=== PATIENT | male | born 1955 | race Caucasian/White ===

== ENCOUNTER → 2017-10-20 | Outpatient (CLI) | payer BC ==
--- NOTE | 2017-10-20 17:25 | CONS ---
CONSULTATION REASON FOR EVALUATION: Sleep apnea. This is a 62-year-old watson who is coming in for sleep apnea evaluation. His symptoms started approximately July of 2017 when he quit smoking. After he quit smoking, he has various symptoms of nicotine withdrawal including sleep disturbance, constipation, sweating and he was waking up from sleep in the middle of the night. At the same time, the noted that the patient is snoring on and off and he is having apneas and he would wake up with a body jerk. No marla seizures have been reported. The patient denies having any major hypersomnia or sleepiness. Danbury score of 12. He goes to bed around midnight and wakes up 6:00 am in the morning. He is a watson and is able to perform activities of day-to-day life without having to fall sleep nor being interrupted because of excessive sleepiness. No problems with memory and concentration. He is feeling a bit tired. PAST MEDICAL HISTORY: Negative. SURGICAL HISTORY: Negative. DRUG ALLERGIES: Not known. MEDICATIONS ARE: Baby aspirin, and Zyrtec. SOCIAL HISTORY: He is a ex-smoker. He has 40 pack year smoking history. He is a watson. No history of alcohol. No history of IV drugs. FAMILY HISTORY: Negative for sleep apnea. REVIEW OF SYSTEMS: 12-point review of system was done. Most of the positive findings are mentioned above in history of present illness. No history of any nocturia. No grinding of the teeth. No sleepwalking. No dry mouth. No palpitations. No heartburn. No restlessness in the lower extremities. No sweating for now. No sleep talking. PHYSICAL EXAMINATION: BP is 134/82, pulse 72, respirations 16, and temperature 98, saturation 95% on room air. Danbury score is at 12. Weight is 213, BMI 30.5, height is 5 feet 10 inches. Neck size 16 and a quarter of an inch. GENERAL APPEARANCE: Appears calm, comfortable. Head is atraumatic, normocephalic. NECK: Supple. No JVD. No goiter or neck masses. Mallampati Class 1. LUNGS: Clear to auscultation. HEART: Sounds are regular. Normal S1, S2. No S3, S4. No murmurs. ABDOMEN: Soft, nontender. No organomegaly. EXTREMITIES: No edema. No cyanosis or clubbing. IMPRESSION: 1. Questionable nocturnal apneas rule out underlying obstructive sleep apnea. 2. Nicotine withdrawal symptoms. The patient quit smoking approximately 2-3 months ago. Symptoms overall are improving. 3. Chronic environmental allergies. PLAN: The patient is doing better as he recovers from symptoms of nicotine withdrawal. He is not smoking for now. He is not using any nicotine replacements. At the same time there was concern of obstructive sleep apnea. Based on description is was given by the . My overall suspicion is low taking into account the patient's symptoms and anatomic features. We will do a home sleep study to screen the patient and treat accordingly. MMODL / IJN: [id number] /
== END | disposition home or self-care (01) ==
LOC: SLEEP 15:49
PROVIDERS: ATTEND Internal Medicine Critical Care Medicine
DX: R06.83 Snoring (principal); F17.293 Nicotine dependence, other tobacco product, with withdrawal; Z79.899 Other long term (current) drug therapy
CPT/HCPCS: 99211

== ENCOUNTER → 2018-03-02 | Outpatient (CLI) | payer BC ==
--- NOTE | 2018-03-02 15:35 | PN ---
PROGRESS NOTE DATE OF SERVICE: 03/02/2018 A 62-year-old gentleman who has been followed in the [facility] to discuss results of home sleep apnea test and following plan. Patient is a patient of Dr. Penny. I discussed results of sleep study with patient in detail. Sleep study showed total apnea-hypopnea index 26.6 with 70 episodes of documented central apneas with oxygen desaturation to 84%. The patient and his referred at the moment when the sleep study was done was the time when patient stopped smoking and at that time, his sleep quality was very bad. He has multiple awakenings from sleep. Significant amount of jerking movements at night and his sleep significantly improved comparing to that time now. According to his , his snoring decreased. He does not snore now and sleeps quite well again. Winn Sleepiness Scale today is 7. MEDICATIONS: Baby aspirin. PHYSICAL EXAM: Patient in no distress. BP 115/77, HR 76, RR 16. Weight 221.4 pounds, height 70 inches, body mass index 31.7. OROPHARYNX: Mallampati 1 practically normal position of soft palate. Neck Supple, no JVD. Thyroid is not palpable. LUNGS Clear to percussion and to auscultation. Good air exchange. No wheezing or rhonchi. HEART S1, S2 regular. No murmurs, gallops, or rubs. ABDOMEN Soft and nontender. Bowel sounds are present. No organomegaly appreciated. EXTREMITIES No clubbing or cyanosis. [employer] Awake, alert, and oriented X3. Cranial nerves 2 to 7 intact. There is no fasciculation or atrophy. noted. No focal deficits observed. We discussed possibility to use CPAP treatment for treatment of obstructive and central sleep apnea-hypopnea syndrome, but at the present time, patient does not feel comfortable to start CPAP therapy and preferred to avoid that. IMPRESSION: 1. Obstructive sleep apnea and central sleep apnea-hypopnea syndrome by results of home sleep study in moderate range. 2. Seasonal allergy. 3. Mild obesity. 4. History of nicotine withdrawal syndrome in the past. Presently, no problems. PLAN: 1. Patient will follow with Dr. Penny. 2. I would suggest to repeat home sleep apnea test now to recheck the patient's breathing at the present time. 3. Sleep hygiene with regular time in bed for 7 hours. 4. No driving if feeling sleepiness. 5. Watching and losing weight. 6. Preferable position during the sleep on the side and slightly up. Thank you very much. Sincerely, Cuco Guy MD, PhD, FAASM Diplomat of [employer] [facility] MMODL / CATHERINE: [id number] /
== END | disposition home or self-care (01) ==
LOC: SLEEP 11:33
PROVIDERS: ATTEND Internal Medicine
DX: G47.33 Obstructive sleep apnea (adult) (pediatric) (principal); G47.31 Primary central sleep apnea; J30.2 Other seasonal allergic rhinitis; E66.9 Obesity, unspecified; Z68.31 Body mass index [BMI] 31.0-31.9, adult; Z87.891 Personal history of nicotine dependence